=== PATIENT | female | born 2000 | race Two or more races ===

== ENCOUNTER 2023-06-17 16:51 | Emergency (ER) | payer OTHER ==
[~2023-06-17] VITALS: Ht 157.5 cm; Wt 44.5 kg
[2023-06-17] MEDS ORDERED: LOPRESSOR25 MG PO (17:02)
== END 2023-06-17 19:43 | disposition home or self-care (01) ==
LOC: ER 16:51
DX: U07.1 COVID-19 (principal)

== ENCOUNTER 2024-06-11 16:21 | Emergency (ER) | payer OTHER ==
[~2024-06-11] VITALS: Ht 157.5 cm; Wt 48.5 kg
[~2024-06-11 16:21] MED LIST: LOPRESSOR25 MG PO
[2024-06-11] MEDS ORDERED: KETOROLAC TROMETHAMINE 30 MG VIAL IV ONE (17:00)
[2024-06-11] MEDS ORDERED: CEFTRIAXONE SODIUM 2,000 MG VIAL IV ONE (17:00)
[2024-06-11] MEDS ORDERED: 0.9 % SODIUM CHLORIDE 1,000 ML IV SCH (17:00)
[2024-06-11] MEDS ORDERED: FAMOTIDINE/PF 20 MG in 0.9 % SODIUM CHLORIDE 8 ML IV PUSH STA (17:01)
[2024-06-11] MEDS ORDERED: KETOROLAC TROMETHAMINE 30 MG VIAL ONE (17:05)
[2024-06-11] MEDS ORDERED: CEFTRIAXONE SODIUM 2,000 MG VIAL ONE (17:05)
[2024-06-11 17:37] LABS: HEMOGLOBIN 11.6 g/dL (12.0-15.00); MEAN CELL VOLUME 83.7 fL (80.00-100.00); MEAN CORPUSCULAR HEMOGLOBIN 28.5 pg (27.00-32.0); PLATELET COUNT 162 K/uL (150-450); RED BLOOD COUNT 4.06 M/uL (4.00-6.00); RED CELL DISTRIBUTION WIDTH 12.9 % (11.5-14.5)
[2024-06-11] MEDS ORDERED: FAMOtidine 200mg/20ml VIAL ONE (17:47)
[2024-06-11 17:57] LABS: ALBUMIN 4.5 gm/dL (3.4-5.0); BILIRUBIN TOTAL 0.61 mg/dL (0.3-1.2); CALCIUM 9.4 mg/dL (8.5-10.1); CREATININE SERUM 0.69 mg/dL (0.55-1.02); GFR 105.43; GLOBULINA 3.4 G/DL (2.4-3.5); POTASSIUM 3.66 mEq/L (3.5-5.1); TOTAL PROTEIN 7.9 gm/dL (6.4-8.2)
[2024-06-11 19:01] LABS: URINE APPEARANCE Clear; URINE BILIRRUBIN Negative (NEGATIVE); URINE BLOOD Negative; URINE COLOR Yellow; URINE GLUCOSE Negative (NEGATIVE); URINE LEUKOCYTE Trace; URINE NITRATE Negative; URINE PROTEIN Negative (NEGATIVE); URINE UROBILINOGEN 0.2 E.U./dl
[2024-06-11 19:05] LABS: URINE BACTERIA 216.6 uL (0.0-1933); URINE RBC 4.2 uL (0.0-20.8); URINE WBC 25.1 uL (0.0-23.2)
[2024-06-11] MEDS ORDERED: LEVSIN/SL0.125 MG SL (20:37)
[2024-06-11] MEDS ORDERED: PEPCID AC20 MG PO (20:37)
[2024-06-11] MEDS ORDERED: CEFADROXIL500 MG PO (20:37)
== END 2024-06-11 21:00 | disposition home or self-care (01) ==
LOC: ER 16:22
PROVIDERS: General Practice
DX: N39.0 Urinary tract infection, site not specified (principal)